=== PATIENT | female | born 1930 | race Caucasian/White ===

== ENCOUNTER → 2017-12-31 | Outpatient (CLI) | payer MEDICARE ==
[2017-03-26 13:57] VITALS: BMI 22.1
[~2017-12-31] MED LIST: AMLO-96 PO; AMLO-99 PO; AMOX-559 PO; ASP81 PO; ATEN-1 PO; CALC500T42 PO; CEFU250 PO; CHOL200074 PO; CYC10 PO; DILT-145 PO; FOLI-68 PO; GABA-547 PO; HYDR-2946 PO; HYDR-2963 PO; HYDR-2970 PO; HYDR10TA20 PO; HYDR12.556 PO; IRON18TA2 PO; LEV75 PO; LISI-374 PO; LISI2.5T60 PO; LOR5/325 PO; METF-410 PO; MULT-1097 PO; OMEP-137 PO; ONDA4TAB PO; ONDA4TAB97 PO; POTA10CA61 PO; PRAM0.2524 PO; PRE5 PO; ROSU5TAB8 PO; SIMV-42 PO; SIMV-44 PO; SOT80 PO; SPIR25TA78 PO; [UNRECOGNIZED DRUG - CODE] IH; [UNRECOGNIZED DRUG - CODE] PO
== END ==
LOC: LAB 10:15
PROVIDERS: ATTEND Nurse Practitioner Family
DX: N18.3 Chronic kidney disease, stage 3 (moderate) (principal); Z86.39 Personal history of other endocrine, nutritional and metabolic disease
CPT/HCPCS: 36415; 82040; 82247; 82310; 82374; 82435; 82565; 82947; 84075; 84132; 84155; 84295; 84443; 84450; 84460; 84520

== ENCOUNTER → 2018-01-09 | Outpatient (CLI) | payer MEDICARE ==
[2017-03-26 13:57] VITALS: BMI 22.1
== END ==
LOC: LAB 09:47
PROVIDERS: ATTEND Internal Medicine
DX: I10 Essential (primary) hypertension (principal)
CPT/HCPCS: 36415; 82310; 82374; 82435; 82565; 82947; 84132; 84295; 84520

== ENCOUNTER → 2018-01-09 | Outpatient (CLI) | payer MEDICARE ==
[2017-03-26 13:57] VITALS: BMI 22.1
--- NOTE | 2018-01-09 10:53 | RADIOLOGY IMAGING REPORT ---
FACILITY: [facility] - [place] PATIENT NAME: Melissa Villeda : 1930 MR: [id number] V: [id number] EXAM DATE: ORDERING PHYSICIAN: TOSHA AKBAR TECHNOLOGIST: Location: [facility] - [place] Patient: Melissa Villeda : 1930 Visit/Account:[id number] Date of Sevice: 01/09/2018 Technique: CHEST PA AND LAT HISTORY: Right, Comparison studies: Chest radiograph April 12, 2017, CT chest March 25, 2017 FINDINGS: Present is bibasilar scarring and/or atelectasis. No lobar airspace consolidation. Promin ent vascular superimposition or scarring when compared with CT is noted within the right lung base at the level of the mid right hemidiaphragm. The cardiomediastinal silhouette is unchanged. IMPRESSION: 1. No acute cardiopulmonary process. 2. Bibasilar scarring and/or atelectasis. Report Dictated By: Marvel Benitez DO at 01/09/2018 10:46 AM Report E-Signed By: Marvel Benitez DO at 01/09/2018 10:49 AM WSN:[id number]
== END ==
LOC: RAD 09:50
PROVIDERS: ATTEND Nurse Practitioner Family
DX: R91.8 Other nonspecific abnormal finding of lung field (principal)
CPT/HCPCS: 71046

== ENCOUNTER → 2018-02-17 | Outpatient (CLI) | payer MEDICARE ==
[2017-03-26 13:57] VITALS: BMI 22.1
[~2018-02-17] MED LIST changes: +CITA-139 PO; +DILT-106 PO; +LEVO50TA86 PO; +LOSA100T67 PO
== END ==
LOC: LAB 11:57
PROVIDERS: ATTEND Surgery
DX: L72.0 Epidermal cyst (principal)
CPT/HCPCS: 88305

== ENCOUNTER → 2018-03-21 | Outpatient (CLI) | payer MEDICARE ==
[2017-03-26 13:57] VITALS: BMI 22.1
== END ==
LOC: LAB 07:06
PROVIDERS: ATTEND Internal Medicine
DX: I65.23 Occlusion and stenosis of bilateral carotid arteries (principal); I10 Essential (primary) hypertension
CPT/HCPCS: 36415; 82310; 82374; 82435; 82565; 82947; 84132; 84295; 84520

== ENCOUNTER → 2018-03-31 | Outpatient (CLI) | payer MEDICARE ==
[2017-03-26 13:57] VITALS: BMI 22.1
== END ==
LOC: LAB 07:11
PROVIDERS: ATTEND Nurse Practitioner Family
DX: I12.9 Hypertensive chronic kidney disease with stage 1 through stage 4 chronic kidney disease, or unspecified chronic kidney disease (principal); N18.3 Chronic kidney disease, stage 3 (moderate); D53.9 Nutritional anemia, unspecified; E11.9 Type 2 diabetes mellitus without complications; Z86.39 Personal history of other endocrine, nutritional and metabolic disease; E83.52 Hypercalcemia; D50.8 Other iron deficiency anemias; R53.83 Other fatigue; E78.2 Mixed hyperlipidemia; M62.81 Muscle weakness (generalized); D51.0 Vitamin B12 deficiency anemia due to intrinsic factor deficiency; M05.59 Rheumatoid polyneuropathy with rheumatoid arthritis of multiple sites; E21.5 Disorder of parathyroid gland, unspecified; E55.9 Vitamin D deficiency, unspecified
CPT/HCPCS: 36415; 82040; 82247; 82306; 82310; 82374; 82435; 82465; 82565; 82607; 82947; 83718; 84075; 84132; 84155; 84295; 84443; 84450; 84460; 84478; 84520; 85027

== ENCOUNTER → 2018-06-09 | Outpatient (CLI) | payer MEDICARE ==
[2017-03-26 13:57] VITALS: BMI 22.1
[~2018-06-09] MED LIST changes: -CITA-139 PO; +CITA-145 PO; -METF-410 PO; +METF-411 PO
== END ==
LOC: LAB 12:57
PROVIDERS: ATTEND Nurse Practitioner Family
DX: N18.2 Chronic kidney disease, stage 2 (mild) (principal); D53.9 Nutritional anemia, unspecified; E11.9 Type 2 diabetes mellitus without complications; Z86.39 Personal history of other endocrine, nutritional and metabolic disease; E83.52 Hypercalcemia; M62.81 Muscle weakness (generalized)
CPT/HCPCS: 36415; 82040; 82247; 82310; 82374; 82435; 82465; 82550; 82565; 82947; 83718; 84075; 84132; 84155; 84295; 84443; 84450; 84460; 84478; 84520

== ENCOUNTER → 2018-06-18 | Outpatient (CLI) | payer MEDICARE ==
[2017-03-26 13:57] VITALS: BMI 22.1
[~2018-06-18] MED LIST changes: -SPIR25TA78 PO; +SPIR25TA80 PO
[2018-06-18 08:27] LABS: PLATELET COUNT, AUTOMATED 212 K/uL (150-450)
== END ==
LOC: LAB 07:30
PROVIDERS: ATTEND Nurse Practitioner Family
DX: E87.1 Hypo-osmolality and hyponatremia (principal); E06.3 Autoimmune thyroiditis; Z86.39 Personal history of other endocrine, nutritional and metabolic disease; R06.00 Dyspnea, unspecified; R05 Cough; I10 Essential (primary) hypertension
CPT/HCPCS: 36415; 82024; 82040; 82247; 82310; 82374; 82435; 82436; 82533; 82565; 82947; 83880; 83970; 84075; 84132; 84133; 84155; 84295; 84300; 84443; 84450; 84460; 84520; 85025

== ENCOUNTER → 2018-07-10 | Outpatient (CLI) | payer MEDICARE ==
[2017-03-26 13:57] VITALS: BMI 22.1
== END ==
LOC: LAB 07:25
PROVIDERS: ATTEND Nurse Practitioner Family
DX: E87.1 Hypo-osmolality and hyponatremia (principal); I50.9 Heart failure, unspecified
CPT/HCPCS: 36415; 82040; 82247; 82310; 82374; 82435; 82565; 82947; 83880; 84075; 84132; 84155; 84295; 84450; 84460; 84520

== ENCOUNTER 2018-07-24 10:46 | Emergency (ER) | payer MEDICARE ==
[2017-03-26 13:57] VITALS: Wt 68.0 kg
[2018-07-24] MEDS ORDERED: LEVO88TA43 PO (10:56)
[2018-07-24] MEDS ORDERED: PRED-1 PO (10:56)
--- NOTE | 2018-07-24 10:57 | ER Report ---
History and Physical Time Seen By MD: 10:56 HPI/ROS CHIEF COMPLAINT: Generalized weakness HISTORY OF PRESENT ILLNESS: Patient is an 88-year-old female who presents to the emergency department for generalized weakness. She was seen at her primary care provider office today and she relayed that she was feeling weak that both of her legs felt "shaky. For this reason the primary care provider thought she would best be served having an evaluation in the emergency department. Patient does report some dizziness without true vertigo. She denies headache or neck pain. She denies fevers or chills she does report some shortness of breath. She states that the symptoms started around 8 AM this morning. She denies having similar episodes in the past. Patient has a past medical history for hypo-nature anemia. She also has history of palpitations and is currently on diltiazem as well as sotalol but only on Wednesdays and Fridays. Patient states she did not take sotalol today. REVIEW OF SYSTEMS: Constitutional: No fever, no chills. Eyes: No discharge. ENT: No sore throat. Cardiovascular: No chest pain, no palpitations. Respiratory: Mild shortness of breath without cough Gastrointestinal: No abdominal pain, no vomiting. Genitourinary: No hematuria. Musculoskeletal: No back pain. Skin: No rashes. Neurological: No headache. Mild dizziness Allergies: Coded Allergies: sulfamethoxazole (Verified Allergy, Severe, UNKNOWN, 04/12/17) Nurse at rehab center took pt's vital signs and told the pt that she didn't like what she saw and took pt to the hospital. trimethoprim (Verified Allergy, Severe, UNKNOWN, 04/12/17) Nurse at rehab center took pt's vital signs and told the pt that she didn't like what she saw and took pt to the hospital. codeine (Verified Adverse Reaction, Mild, NAUSEA/VOMITING, 04/12/17) Home Meds Reported Medications Levothyroxine Sodium (SYNTHROID) 88 Mcg Tablet, 88 MCG PO QM,T,W,TH,F 07/24/18 Prednisone 10 Mg Tab (PREDNISONE 10 MG TAB) 10 Mg Tablet, 5 MG PO QDAY, TAB 07/24/18 Citalopram Hydrobromide (CITALOPRAM HBR) 20 Mg Tablet, 10 MG PO QDAY, #5 TAB 02/10/18 Sotalol Hcl (SOTALOL) 80 Mg Tab, 40 MG PO QODAY, TAB Take 02/10/18 Diltiazem Hcl (CARTIA XT) 240 Mg Cap.er.24h, 240 MG PO BID 02/10/18 Pramipexole Di-Hcl (MIRAPEX) 0.25 Mg Tablet, 0.25 MG PO QHS 03/25/17 Folic Acid (FOLIC ACID) 1 Mg Tablet, 1 MG PO QPM, TAB 03/25/17 Rosuvastatin Calcium (CRESTOR) 5 Mg Tablet, 5 MG PO QPM 03/25/17 Cholecalciferol (Vitamin D3) (VITAMIN D-3) 2,000 Unit Capsule, 2000 UNIT PO DAILY, CAPSULE 10/14/15 Multivitamin (ONE DAILY) 1 Each Tablet, 1 EACH PO DAILY 04/20/15 Aspirin (Childrens Chewable Aspirin) 81 Mg Chew, 81 MG PO QDAY, 0 Refills 05/24/11 Discontinued Reported Medications Losartan Potassium (LOSARTAN POTASSIUM) 100 Mg Tablet, 100 MG PO QDAY 02/10/18 Levothyroxine Sodium (LEVOTHYROXINE SODIUM) 50 Mcg Tablet, 50 MCG PO QDAY, TAB Take -Sa-Peraza 02/10/18 Omeprazole (OMEPRAZOLE) 20 Mg Tablet.dr, 20 MG PO QDAY, TAB 03/25/17 Levothyroxine Sodium (Synthroid/Levothroid) 0.075 Mg Tab, 1 TAB PO QDAY, 0 Refills Take 05/24/11 Discontinued Scripts Prednisone 5 Mg Tab (PREDNISONE 5 MG TAB) 5 Mg Tablet, 5 MG PO QPM, #30 TAB 1 Refill Take two tablets a day for 3 days then resume one tablet daily after that. Prov:RADHA MENSAH MD 03/27/17 Past Medical/Surgical History Past medical history for hypertriglyceridemia. History of sinusitis, hyponatremia, chronic kidney disease stage IV last creatinine on 07/10/2018 was 1.00 with a GFR of 52., type II diabetes, hypothyroidism, supraventricular tachycardia,, hypertension. Past surgical history for cholecystectomy, hysterect jaleel Hx Smoking: Yes Smoking Status: Former Smoker Hx Substance Use Disorder: No Hx Alcohol Use: No (former) Constitutional Vital Sign - Last 24 Hours 07/24/18 07/24/18 10:50 15:34 Temp 98.4 Pulse 44 68 Resp 18 B/P (MAP) 131/78 144/71 (95) Pulse Ox 90 92 O2 Delivery Room Air Room Air Intake and Output 07/24/18 07/24/18 07/25/18 15:00 23:00 07:00 Intake Total 500 ml Balance 500 ml Physical Exam General/Constitutional: Patient is awake, alert, nontoxic and in no acute respiratory distress. Head: Normocephalic and atraumatic. Eyes: Conjunctival clear, Pupils are equal and reactive to light. Extraocular muscles are intact and symmetrical. Sclera are clear and anicteric. Ears:External canals are clear. Tympanic membranes are clear with normal landmarks and light reflex. Nares: No rhinorrhea or bleeding. Turbinates are pink and moist. Oropharyngeal: Mucous membranes are moist. There is no pharyngeal erythema or exudate. There are no palatal petechiae. Uvula is midline and symmetrical. Neck: Supple, no adenopathy. Cardiovascular: Heart is regular but with a bradycardic rate. Pulmonary: Lungs are clear to auscultation bilaterally. There are no wheezes, rales, or rhonchi. Chest rise is symmetrical Abdomen: Soft, nontender, no guarding or peritoneal signs. Extremities: No gross deformities, No peripheral cyanosis. Able to move all 4 extremities. Neuro: Alert and oriented X3, Cranial nerves 2 thru 12 are intact and symmetrical. Skin: No rashes, skin is warm dry and well perfused. Medical Decision Making Data Points Result Diagram: 07/24/18 1057 07/24/18 1057 Laboratory Hematology Test 07/24/18 10:57 07/24/18 12:14 07/24/18 14:57 Red Blood Count 4.56 M/uL (4.17-5.56) Mean Corpuscular Volume 91.1 fL (80.0-96.0) Mean Corpuscular Hemoglobin 31.7 pg (26.0-33.0) Mean Corpuscular Hemoglobin Concent 34.8 g/dL (32.0-36.0) Red Cell Distribution Width 13.3 % (11.5-14.5) Mean Platelet Volume 8.3 fL (7.2-11.1) Neutrophils (%) (Auto) 61.8 % (39.4-72.5) Lymphocytes (%) (Auto) 24.6 % (17.6-49.6) Monocytes (%) (Auto) 10.8 % (4.1-12.4) Eosinophils (%) (Auto) 2.1 % (0.4-6.7) Basophils (%) (Auto) 0.7 % (0.3-1.4) Nucleated RBC Relative Count (auto) 0.1 /100WBC Neutrophils # (Auto) 6.6 K/uL (2.0-7.4) Lymphocytes # (Auto) 2.6 K/uL (1.3-3.6) Monocytes # (Auto) 1.2 K/uL (0.3-1.0) Eosinophils # (Auto) 0.2 K/uL (0.0-0.5) Basophils # (Auto) 0.1 K/uL (0.0-0.1) Nucleated RBC Absolute Count (auto) 0.01 K/uL Sodium Level 134 mmol/L (137-145) Potassium Level 3.7 mmol/L (3.5-5.0) Chloride Level 100 mmol/L (98-107) Carbon Dioxide Level 23 mmol/L (22-31) Blood Urea Nitrogen 18 mg/dl (7-18) Creatinine 1.30 mg/dl (0.52-1.04) Glomerular Filtration Rate Calc 38.7 Random Glucose 90 mg/dl (75-110) Calcium Level 10.2 mg/dl (8.4-10.2) Total Bilirubin 0.7 mg/dl (0.2-1.3) Aspartate Amino Transf (AST/SGOT) 22 U/L (0-35) Alanine Aminotransferase (ALT/SGPT) 23 U/L (0-56) Alkaline Phosphatase 73 U/L (0-126) Total Protein 6.9 g/dl (6.3-8.2) Albumin 4.0 g/dl (3.5-5.0) Thyroid Stimulating Hormone (TSH) 3.96 uIU/ml (0.46-4.68) Urine Color Yellow Urine Clarity Clear Urine pH 6.0 pH (4.8-9.5) Urine Specific [place] 1.011 Urine Protein Negative mg/dL (NEGATIVE) Urine Glucose (UA) Negative mg/dL (NEGATIVE) Urine Ketones Negative mg/dL (NEGATIVE) Urine Blood Negative (NEGATIVE) Urine Nitrite Negative (NEGATIVE) Urine Bilirubin Negative (NEGATIVE) Urine Urobilinogen Negative mg/dL (0.2-1.9) Urine Leukocyte Esterase Negative (NEGATIVE) Urine RBC None /HPF (0-2/HPF) Urine WBC <1 /HPF (0-5/HPF) Urine Squamous Epithelial Cells None /LPF (NONE-FEW) Urine Bacteria Negative /HPF (NONE-FEW) Urine Hyaline Casts Few /LPF (NONE-FEW) Urine Mucus None /HPF (NONE-FEW) Troponin I < 0.012 ng/ml Chemistry Test 07/24/18 10:57 07/24/18 12:14 07/24/18 14:57 White Blood Count 10.7 k/uL (4.5-11.0) Red Blood Count 4.56 M/uL (4.17-5.56) Hemoglobin 14.5 g/dL (12.0-16.0) Hematocrit 41.6 % (34.0-47.0) Mean Corpuscular Volume 91.1 fL (80.0-96.0) Mean Corpuscular Hemoglobin 31.7 pg (26.0-33.0) Mean Corpuscular Hemoglobin Concent 34.8 g/dL (32.0-36.0) Red Cell Distribution Width 13.3 % (11.5-14.5) Platelet Count 227 K/uL (150-450) Mean Platelet Volume 8.3 fL (7.2-11.1) Neutrophils (%) (Auto) 61.8 % (39.4-72.5) Lymphocytes (%) (Auto) 24.6 % (17.6-49.6) Monocytes (%) (Auto) 10.8 % (4.1-12.4) Eosinophils (%) (Auto) 2.1 % (0.4-6.7) Basophils (%) (Auto) 0.7 % (0.3-1.4) Nucleated RBC Relative Count (auto) 0.1 /100WBC Neutrophils # (Auto) 6.6 K/uL (2.0-7.4) Lymphocytes # (Auto) 2.6 K/uL (1.3-3.6) Monocytes # (Auto) 1.2 K/uL (0.3-1.0) Eosinophils # (Auto) 0.2 K/uL (0.0-0.5) Basophils # (Auto) 0.1 K/uL (0.0-0.1) Nucleated RBC Absolute Count (auto) 0.01 K/uL Glomerular Filtration Rate Calc 38.7 Calcium Level 10.2 mg/dl (8.4-10.2) Total Bilirubin 0.7 mg/dl (0.2-1.3) Aspartate Amino Transf (AST/SGOT) 22 U/L (0-35) Alanine Aminotransferase (ALT/SGPT) 23 U/L (0-56) Alkaline Phosphatase 73 U/L (0-126) Total Protein 6.9 g/dl (6.3-8.2) Albumin 4.0 g/dl (3.5-5.0) Thyroid Stimulating Hormone (TSH) 3.96 uIU/ml (0.46-4.68) Urine Color Yellow Urine Clarity Clear Urine pH 6.0 pH (4.8-9.5) Urine Specific [place] 1.011 Urine Protein Negative mg/dL (NEGATIVE) Urine Glucose (UA) Negative mg/dL (NEGATIVE) Urine Ketones Negative mg/dL (NEGATIVE) Urine Blood Negative (NEGATIVE) Urine Nitrite Negative (NEGATIVE) Urine Bilirubin Negative (NEGATIVE) Urine Urobilinogen Negative mg/dL (0.2-1.9) Urine Leukocyte Esterase Negative (NEGATIVE) Urine RBC None /HPF (0-2/HPF) Urine WBC <1 /HPF (0-5/HPF) Urine Squamous Epithelial Cells None /LPF (NONE-FEW) Urine Bacteria Negative /HPF (NONE-FEW) Urine Hyaline Casts Few /LPF (NONE-FEW) Urine Mucus None /HPF (NONE-FEW) Troponin I < 0.012 ng/ml Urinalysis Test 07/24/18 12:14 Urine Color Yellow Urine Clarity Clear Urine pH 6.0 pH (4.8-9.5) Urine Specific [place] 1.011 Urine Protein Negative mg/dL (NEGATIVE) Urine Glucose (UA) Negative mg/dL (NEGATIVE) Urine Ketones Negative mg/dL (NEGATIVE) Urine Blood Negative (NEGATIVE) Urine Nitrite Negative (NEGATIVE) Urine Bilirubin Negative (NEGATIVE) Urine Urobilinogen Negative mg/dL (0.2-1.9) Urine Leukocyte Esterase Negative (NEGATIVE) Urine RBC None /HPF (0-2/HPF) Urine WBC <1 /HPF (0-5/HPF) Urine Squamous Epithelial Cells None /LPF (NONE-FEW) Urine Bacteria Negative /HPF (NONE-FEW) Urine Hyaline Casts Few /LPF (NONE-FEW) Urine Mucus None /HPF (NONE-FEW) EKG/Imaging EKG Interpretation EKG shows actual bradycardia with rate of 47 bpm. This was compared to an EKG in April 2017 which showed sinus rhythm with first-degree AV block. Monitor Interpretation: Other (junctional bradycardia) Imaging FACILITY: [facility] PATIENT NAME: Melissa Villeda : 1930 MR: [id number] V: [id number] EXAM DATE: ORDERING PHYSICIAN: MIKA RODRIGUEZ TECHNOLOGIST: Location: [facility] [place] Patient: Melissa Villeda : 1930 Visit/Account:[id number] Date of Sevice: 07/24/[address] scan without contrast HISTORY: Weakness COMPARISONS: March 19, 2017 TECHNIQUE: Non-contrast head CT was performed with sagittal and coronal reformations. One of the following dose optimization techniques was utilized in the performance of this exam: automated exposure control; adjustment of the mA a nd/or kV according to patient size; or use of iterative reconstruction technique. Specific details can be referenced in the facility's radiology CT exam operational policy. FINDINGS: There is no intracranial hemorrhage, hydrocephalus or midline shift. The basal cisterns, monge-white differentiation, and convexity sulci are maintained. Normal orbital soft tissues. Unchanged patchy white matter hypoattenuation. The mastoid air cells are clear. The paranasal sinuses are clear. The osseous structures are normal. IMPRESSION: No acute intracranial abnormality. Mild to moderate unchanged chronic small vessel ischemic change. Report Dictated By: Puma Correa MD at 07/24/2018 11:59 AM Report E-Signed By: Puma Correa MD at 07/24/2018 12:01 PM WSN:[id number] FACILITY: [facility] PATIENT NAME: Melissa Villeda : 1930 MR: [id number] V: [id number] EXAM DATE: ORDERING PHYSICIAN: MIKA RODRIGUEZ TECHNOLOGIST: Location: [facility] [place] Patient: Melissa Villeda : 1930 Visit/Account:[id number] Date of Sevice: 07/24/2018 Single view of the chest Indication: Weakness and cough. Comparison: X-ray examination January 2018 Findings: Heart size within normal limits. Mild linear prominence of the interstitium, an unchanged finding. There is no new infiltrate, consolidation, effusion or pneumothorax. No failure. Heart is at the upper limits of normal, stable as compared to prior exam. Minimal scarring left base IMPRESSION: 1. Stable chronic parenchymal changes. No acute finding Report Dictated By: Wu Pereyra MD at 07/24/2018 11:20 AM Report E-Signed By: Wu Pereyra MD at 07/24/2018 11:21 AM WSN:[id number] ED Course/Re-evaluation Clinical Indication for ER IV: IV Access ED Course 07/24/2018 1:54:08 pm I spoke with the triage nurse from the [facility]. She spoke with the on-call physician who states that we should have the patient discontinue her diltiazem. We will have her continue her sotalol as prescribed. She will also have a follow-up appointment tomorrow with Dr. Rod at 2:30 PM in the outpatient center here at [facility]. Decision to Disposition Date: Jul 24, 2018 Decision to Disposition Time: 16:00 Depart Departure Latest Vital Signs Vital Signs Date Time Temp Pulse Resp B/P (MAP) Pulse Ox O2 Delivery O2 Flow Rate FiO2 07/24/18 15:34 68 144/71 (95) 92 Room Air 07/24/18 10:50 98.4 18 Impression: Primary Impression: Dizziness Condition: Improved Disposition: HOME OR SELF-CARE Referrals: TOSHA AKBAR (PCP) SHI ROD MD Follow-up at 2:30 PM tomorrow July 25 in patient clinic. Additional Instructions: Discontinue your diltiazem medication Continue to take the sotalol as prescribed You have a follow-up appointment with Dr. Rod tomorrow July 25 at 2:30 PM here at [facility] in the outpatient clinic. MIKA RODRIGUEZ MD Jul 24, 2018 10:57
[2018-07-24] MEDS ORDERED: NS(*) 0.9% 500 ML BAG 500 ML IV ONE (11:01)
[2018-07-24 11:13] LABS: PLATELET COUNT, AUTOMATED 227 K/uL (150-450)
--- NOTE | 2018-07-24 11:25 | RADIOLOGY IMAGING REPORT ---
FACILITY: [facility] - [place] PATIENT NAME: Melissa Villeda : 1930 MR: [id number] V: [id number] EXAM DATE: ORDERING PHYSICIAN: MIKA RODRIGUEZ TECHNOLOGIST: Location: [facility] - [place] Patient: Melissa Villeda : 1930 Visit/Account:[id number] Date of Sevice: 07/24/2018 Single view of the chest Indication: Weakness and cough. Comparison: X-ray examination January 2018 Findings: Heart size within normal limits. Mild linear prominence of the interstitium, an unchanged finding. There is no new infiltrate, consoli dation, effusion or pneumothorax. No failure. Heart is at the upper limits of normal, stable as ousmane red to prior exam. Minimal scarring left base IMPRESSION: 1. Stable chronic parenchymal changes. No acute finding Report Dictated By: Wu Pereyra MD at 07/24/2018 11:20 AM Report E-Signed By: Wu Pereyra MD at 07/24/2018 11:21 AM WSN:[id number]
--- NOTE | 2018-07-24 12:05 | RADIOLOGY IMAGING REPORT ---
FACILITY: [facility] - [place] PATIENT NAME: Melissa Villeda : 1930 MR: [id number] V: [id number] EXAM DATE: ORDERING PHYSICIAN: MIKA RODRIGUEZ TECHNOLOGIST: Location: [facility] - [place] Patient: Melissa Villeda : 1930 Visit/Account:[id number] Date of Sevice: 07/24/[address] scan without contrast HISTORY: Weakness COMPARISONS: March 19, 2017 TECHNIQUE: Non-contrast head CT was performed with sagittal and coronal reformations. One of the following dose optimization techniques was utilized in the performance of this exam: autom ated exposure control; adjustment of the mA and/or kV according to patient size; or use of iterative reconstruction technique. Specific details can be referenced in the facility's radiology CT exam ope rational policy. FINDINGS: There is no intracranial hemorrhage, hydrocephalus or midline shift. The basal cisterns, monge-white differentiation, and convexity sulci are maintained. Normal orbital soft tissues. Unchanged patchy wh ite matter hypoattenuation. The mastoid air cells are clear. The paranasal sinuses are clear. The osseous structures are normal . IMPRESSION: No acute intracranial abnormality. Mild to moderate unchanged chronic small vessel ischemic change. Report Dictated By: Puma Correa MD at 07/24/2018 11:59 AM Report E-Signed By: Puma Correa MD at 07/24/2018 12:01 PM WSN:[id number]
--- NOTE | 2018-07-24 12:23 | EKG ---
FACILITY: [facility] - [place] PATIENT NAME: DIETER NI : [id number] MR: [id number] V: [id number] EXAM DATE: ORDERING PHYSICIAN: MIKA RODRIGUEZ TECHNOLOGIST: NIKI Test Reason : WEAKNESS Blood Pressure : / mmHG Vent. Rate : 047 BPM Atrial Rate : 044 BPM P-R Int : 000 ms QRS Dur : 072 ms QT Int : 474 ms P-R-T Axes : 000 -19 088 degrees QTc Int : 419 ms Junctional rhythm with occasional premature ventricular complexes Septal infarct , age undetermined Abnormal ECG When compared with ECG of 12-APR-2017 02:42, Junctional rhythm has replaced Sinus rhythm Vent. rate has decreased BY 38 BPM Septal infarct is now present Referred By: LAYTON Confirmed By:. READING PANEL
[2018-07-24 15:34] VITALS: BP 144/71
== END 2018-07-24 15:42 | disposition home or self-care (01) ==
LOC: ER 10:50
DX: R42 Dizziness and giddiness (principal)
CPT/HCPCS: 36415; 70450; 71045; 81001; 84443; 84484; 85025; 87088; 93005; 96360; 99284; J7040; 82040; 82247; 82310; 82374; 82435; 82565; 82947; 84075; 84132; 84155; 84295; 84450; 84460; 84520; A4353

== ENCOUNTER → 2018-08-06 | Outpatient (CLI) | payer MEDICARE ==
[2017-03-26 13:57] VITALS: BMI 22.1
[~2018-08-06] MED LIST changes: +LEVO88TA43 PO; +PRED-1 PO
== END ==
LOC: LAB 07:09
PROVIDERS: ATTEND Nurse Practitioner Family
DX: E87.1 Hypo-osmolality and hyponatremia (principal); I10 Essential (primary) hypertension; E61.2 Magnesium deficiency
CPT/HCPCS: 36415; 82040; 82247; 82310; 82374; 82435; 82565; 82947; 83735; 84075; 84132; 84155; 84295; 84450; 84460; 84520

== ENCOUNTER → 2018-10-14 | Outpatient (CLI) | payer MEDICARE ==
[2017-03-26 13:57] VITALS: BMI 22.1
[~2018-10-14] MED LIST changes: +AMLO-111 PO; +AMLO-113 PO; -AMLO-96 PO; -AMLO-99 PO; -LOSA100T67 PO; +LOSA100T69 PO; -METF-411 PO; +METF-450 PO
== END ==
LOC: LAB 11:19
PROVIDERS: ATTEND Nurse Practitioner Family
DX: I10 Essential (primary) hypertension (principal); E87.1 Hypo-osmolality and hyponatremia; E61.2 Magnesium deficiency
CPT/HCPCS: 36415; 82040; 82247; 82310; 82374; 82435; 82565; 82947; 83735; 84075; 84132; 84155; 84295; 84450; 84460; 84520

== ENCOUNTER → 2018-12-16 | Outpatient (CLI) | payer MEDICARE ==
[2017-03-26 13:57] VITALS: BMI 22.1
[~2018-12-16] MED LIST changes: -AMLO-111 PO; -AMLO-113 PO; +AMLO-125 PO; +AMLO-127 PO; -LOSA100T69 PO; +LOSA100T75 PO; -MULT-1097 PO; +MULT-1540 PO
--- NOTE | 2018-12-16 14:16 | RADIOLOGY IMAGING REPORT ---
FACILITY: [facility] [place] PATIENT NAME: Melissa Villeda : 1930 MR: [id number] V: [id number] EXAM DATE: ORDERING PHYSICIAN: SOURAV FORREST TECHNOLOGIST: Location: [facility] - [place] Patient: Melissa Villeda : 1930 Visit/Account:[id number] Date of Sevice: 12/16/[address] scan without contrast COMPARISONS: Head CT scan dated July 24, 2018 ADDITIONAL PERTINENT HISTORY: Fall with swelling and bruising about both orbits. TECHNIQUE: Multiple axial images were obtained from the skull base to the vertex without IV contrast . One of the following dose optimization techniques was utilized in the performance of this exam: Aut omated exposure control; adjustment of the mA and/or kV according to the patient's size; or use of an iterative reconstruction technique. Specific details can be referenced in the facility's radiology CT exam operational policy. FINDINGS: Midline shift: Negative Ventricles: Mild enlargement of the lateral and third ventricles. Brain parenchyma: Patchy hypoattenuation within the periventricular and subcortical white matter, no nspecific but likely representing small vessel ischemic change on a chronic basis. No intraparenchym al hemorrhage. Extra-axial spaces: Mild cerebral atrophy. Intracranial vasculature: Cavernous internal carotid and distal vertebral artery calcifications. Ot herwise negative Osseous structures: Negative Paranasal sinuses and mastoid air cells: Negative Surrounding soft tissues and orbits: Right frontal scalp soft tissue hematoma and right periorbital soft tissue swelling. IMPRESSION: 1. Age related changes as described above. 2. Right frontal scalp and right periorbital soft tissue hematoma. 3. No evidence of acute intracranial pathology. Report Dictated By: Kenrick Sanches MD at 12/16/2018 2:07 PM Report E-Signed By: Kenrick Sanches MD at 12/16/2018 2:12 PM WSN:[id number]
--- NOTE | 2018-12-16 14:49 | RADIOLOGY IMAGING REPORT ---
FACILITY: [facility] - [place] PATIENT NAME: Melissa Villeda : 1930 MR: [id number] V: [id number] EXAM DATE: ORDERING PHYSICIAN: SOURAV FORREST TECHNOLOGIST: Location: [facility] [place] Patient: Melissa Villeda : 1930 Visit/Account:[id number] Date of Sevice: 12/16/2018 CT ORBITS W/O CONTRAST Comparisons: None. Additional pertinent history: Fall with swelling and bruising about both orbits. TECHNIQUE: Multiple axial images were obtained through the orbits without contrast. Coronal and sag ittal reformatted images were obtained off the axial source data. One of the following dose optimiza tion techniques was utilized in the performance of this exam: Automated exposure control; adjustment of the mA and/or kV according to the patient's size; or use of an iterative reconstruction technique . Specific details can be referenced in the facility's radiology CT exam operational policy. FINDINGS: Visualized brain parenchyma: Cavernous internal carotid artery calcifications. Otherwise negative Globes: Negative. Extraocular muscles: Negative. Retrobulbar structures: Negative. Lacrimal glands: Negative. Optic nerves:Negative. Visualized portions of the paranasal sinuses: Negative Surrounding soft tissues: Bilateral periorbital soft tissue hematomas with a small right frontal sca lp soft tissue hematoma. IMPRESSION: 1. Bilateral periorbital soft tissue hematoma is as well as a right frontal scalp soft tissue hemato ma. 2. No bony traumatic injury involving either orbit Report Dictated By: Kenrick Sanches MD at 12/16/2018 2:42 PM Report E-Signed By: Kenrick Sanches MD at 12/16/2018 2:45 PM WSN:[id number]
== END ==
LOC: CT 11:18
PROVIDERS: ATTEND Nurse Practitioner Family
DX: S00.03XA Contusion of scalp, initial encounter (principal)
CPT/HCPCS: 70450; 70480

== ENCOUNTER 2019-01-05 06:48 | Emergency (ER) | payer MEDICARE ==
[2017-03-26 13:57] VITALS: Wt 63.5 kg
--- NOTE | 2019-01-05 06:58 | ER Report ---
History and Physical Time Seen By MD: 06:58 HPI/ROS CHIEF COMPLAINT: cough, runny nose, weakness HISTORY OF PRESENT ILLNESS: This is an 88 year old female. She is having cough and runny nose for 3 days. Nasal congestion. Denies sore throat. Cough, mostly nonproductive. Has occasional clear production. No known fevers. Using Tylenol off and on as needed. Denies nausea or vomiting. Eating and drinking okay. Has no bowel changes, had a small episode of loose stool a few days ago. Feels very weak. Denies dizziness and is getting around okay. Denies chest pain. Always with mild swelling/edema in legs, unchanged. Allergies: Coded Allergies: sulfamethoxazole (Verified Allergy, Severe, UNKNOWN, 01/05/19) Nurse at rehab center took pt's vital signs and told the pt that she didn't like what she saw and took pt to the hospital. trimethoprim (Verified Allergy, Severe, UNKNOWN, 01/05/19) Nurse at rehab center took pt's vital signs and told the pt that she didn't like what she saw and took pt to the hospital. codeine (Verified Adverse Reaction, Mild, NAUSEA/VOMITING, 01/05/19) Home Meds Active Scripts Benzonatate 100 Mg Cap (TESSALON PERLE 100 MG CAP) 100 Mg Capsule, 100 MG PO TID PRN for COUGH, #15 CAP 0 Refills Prov:JACKIE CLARK MD 01/05/19 Oseltamivir Phosphate (TAMIFLU) 75 Mg Cap, 75 MG PO BID, #10 CAP 0 Refills Prov:JACKIE CLARK MD 01/05/19 Reported Medications Acetaminophen (TYLENOL EXTRA STRENGTH) 500 Mg Tablet, 1000 MG PO HS, TAB 01/05/19 Ranitidine Hcl (RANITIDINE HCL) 75 Mg Tablet, 75 MG PO BID 01/05/19 Sodium Chloride (SODIUM CHLORIDE) 1,000 Mg Tablet.marysol, 1000 MG PO TID 01/05/19 Metoprolol Tartrate (METOPROLOL TARTRATE) 25 Mg Tablet, 1 TAB PO BID, TAB 01/05/19 Minoxidil (MINOXIDIL) 2.5 Mg Tab, 2.5 MG PO DAILY, TAB 01/05/19 Hydralazine Hcl (HYDRALAZINE HCL) 10 Mg Tablet, 10 MG PO BID, TAB 01/05/19 Hydrochlorothiazide (HYDROCHLOROTHIAZIDE) 25 Mg Tablet, 1 TAB PO QDAY, TAB 01/05/19 Lisinopril (LISINOPRIL) 40 Mg Tablet, 40 MG PO QDAY, TAB 01/05/19 Levothyroxine Sodium (SYNTHROID) 88 Mcg Tablet, 88 MCG PO QM,T,W,TH,F 07/24/18 Prednisone 10 Mg Tab (PREDNISONE 10 MG TAB) 10 Mg Tablet, 5 MG PO QDAY, TAB 07/24/18 Citalopram Hydrobromide (CITALOPRAM HBR) 20 Mg Tablet, 10 MG PO QDAY, #5 TAB 02/10/18 Pramipexole Di-Hcl (MIRAPEX) 0.25 Mg Tablet, 0.25 MG PO QHS 03/25/17 Folic Acid (FOLIC ACID) 1 Mg Tablet, 1 MG PO QPM, TAB 03/25/17 Rosuvastatin Calcium (CRESTOR) 5 Mg Tablet, 5 MG PO QPM 03/25/17 Cholecalciferol (Vitamin D3) (VITAMIN D-3) 2,000 Unit Capsule, 2000 UNIT PO DAILY, CAPSULE 10/14/15 Multivitamin (ONE DAILY) 1 Each Tablet, 1 EACH PO DAILY 04/20/15 Aspirin (Childrens Chewable Aspirin) 81 Mg Chew, 81 MG PO QDAY, 0 Refills 05/24/11 Discontinued Reported Medications Sotalol Hcl (SOTALOL) 80 Mg Tab, 40 MG PO QODAY, TAB Take M-W-02/10/18 Diltiazem Hcl (CARTIA XT) 240 Mg Cap.er.24h, 240 MG PO BID 02/10/18 Past Medical/Surgical History Hypertension, hyperlipidemia, osteoporosis and arthritis, hypothyroidism, prediabetes. Cholelithiasis with cholecystectomy, hysterectomy, cataract surgery Reviewed Nurses Notes: Yes Hx Smoking: Yes Smoking Status: Former Smoker Hx Substance Use Disorder: No Hx Alcohol Use: No (former) Constitutional Vital Sign - Last 24 Hours 01/05/19 01/05/19 01/05/19 01/05/19 06:53 07:00 07:15 07:45 Temp 99.4 Pulse 92 83 82 Resp 16 B/P (MAP) 138/75 131/65 (87) Pulse Ox 90 89 92 92 O2 Delivery Room Air 01/05/19 01/05/19 01/05/19 08:00 08:15 08:30 Pulse 79 85 B/P (MAP) 129/61 (83) 146/74 (98) Pulse Ox 90 94 Physical Exam General Appearance: The patient is alert. No acute distress. Eyes: Pupils are equal, round. No pallor, injection or icterus. ENT: Mucous membranes are moist. Normal oral mucosa. Posterior oropharynx with erythema and mild clear drainage. Nasal mucosa red and mucous. Normal tympanic membranes and canals. Neck: Supple and non tender. No lymphadenopathy. Respiratory: Lungs with rhonchi, no rales or wheezing. Breathing easily. Sats 93% on room air. Cardiovascular: Regular rate and rhythm. No murmurs, gallops or rubs. Normal capillary refill. Gastrointestinal: Abdomen is soft, nontender. Nondistended. Normal active bowel sounds. No costovertebral angle tenderness with percussion. Neurological: Alert and oriented x3. No focal neurologic deficits Skin: Warm and dry. Musculoskeletal: Extremities are nontender. DIFFERENTIAL DIAGNOSIS: After history and physical exam, differential diagnosis was considered for cough and congestion, likely viral syndrome but will look at other pulmonary infectious process. Medical Decision Making Data Points Result Diagram: 01/05/19 0719 01/05/19 0719 Laboratory Hematology Test 01/05/19 07:16 01/05/19 07:19 Influenza Virus Type A (PCR) Positive (NEGATIVE) Influenza Virus Type B (PCR) Negative (NEGATIVE) Red Blood Count 3.61 M/uL (4.17-5.56) Mean Corpuscular Volume 92.9 fL (80.0-96.0) Mean Corpuscular Hemoglobin 31.8 pg (26.0-33.0) Mean Corpuscular Hemoglobin Concent 34.2 g/dL (32.0-36.0) Red Cell Distribution Width 13.7 % (11.5-14.5) Mean Platelet Volume 7.7 fL (7.2-11.1) Neutrophils (%) (Auto) 69.9 % (39.4-72.5) Lymphocytes (%) (Auto) 14.9 % (17.6-49.6) Monocytes (%) (Auto) 12.7 % (4.1-12.4) Eosinophils (%) (Auto) 1.6 % (0.4-6.7) Basophils (%) (Auto) 0.9 % (0.3-1.4) Nucleated RBC Relative Count (auto) 0.0 /100WBC Neutrophils # (Auto) 3.5 K/uL (2.0-7.4) Lymphocytes # (Auto) 0.7 K/uL (1.3-3.6) Monocytes # (Auto) 0.6 K/uL (0.3-1.0) Eosinophils # (Auto) 0.1 K/uL (0.0-0.5) Basophils # (Auto) 0.0 K/uL (0.0-0.1) Nucleated RBC Absolute Count (auto) 0.00 K/uL Sodium Level 133 mmol/L (137-145) Potassium Level 4.2 mmol/L (3.5-5.0) Chloride Level 107 mmol/L (98-107) Carbon Dioxide Level 22 mmol/L (22-31) Blood Urea Nitrogen 23 mg/dl (7-18) Creatinine 1.90 mg/dl (0.52-1.04) Glomerular Filtration Rate Calc 24.9 Random Glucose 81 mg/dl (75-110) Calcium Level 9.7 mg/dl (8.4-10.2) Total Bilirubin 0.6 mg/dl (0.2-1.3) Aspartate Amino Transf (AST/SGOT) 20 U/L (0-35) Alanine Aminotransferase (ALT/SGPT) 27 U/L (0-56) Alkaline Phosphatase 56 U/L (0-126) Total Protein 6.5 g/dl (6.3-8.2) Albumin 3.8 g/dl (3.5-5.0) Chemistry Test 01/05/19 07:16 01/05/19 07:19 Influenza Virus Type A (PCR) Positive (NEGATIVE) Influenza Virus Type B (PCR) Negative (NEGATIVE) White Blood Count 5.0 k/uL (4.5-11.0) Red Blood Count 3.61 M/uL (4.17-5.56) Hemoglobin 11.5 g/dL (12.0-16.0) Hematocrit 33.5 % (34.0-47.0) Mean Corpuscular Volume 92.9 fL (80.0-96.0) Mean Corpuscular Hemoglobin 31.8 pg (26.0-33.0) Mean Corpuscular Hemoglobin Concent 34.2 g/dL (32.0-36.0) Red Cell Distribution Width 13.7 % (11.5-14.5) Platelet Count 150 K/uL (150-450) Mean Platelet Volume 7.7 fL (7.2-11.1) Neutrophils (%) (Auto) 69.9 % (39.4-72.5) Lymphocytes (%) (Auto) 14.9 % (17.6-49.6) Monocytes (%) (Auto) 12.7 % (4.1-12.4) Eosinophils (%) (Auto) 1.6 % (0.4-6.7) Basophils (%) (Auto) 0.9 % (0.3-1.4) Nucleated RBC Relative Count (auto) 0.0 /100WBC Neutrophils # (Auto) 3.5 K/uL (2.0-7.4) Lymphocytes # (Auto) 0.7 K/uL (1.3-3.6) Monocytes # (Auto) 0.6 K/uL (0.3-1.0) Eosinophils # (Auto) 0.1 K/uL (0.0-0.5) Basophils # (Auto) 0.0 K/uL (0.0-0.1) Nucleated RBC Absolute Count (auto) 0.00 K/uL Glomerular Filtration Rate Calc 24.9 Calcium Level 9.7 mg/dl (8.4-10.2) Total Bilirubin 0.6 mg/dl (0.2-1.3) Aspartate Amino Transf (AST/SGOT) 20 U/L (0-35) Alanine Aminotransferase (ALT/SGPT) 27 U/L (0-56) Alkaline Phosphatase 56 U/L (0-126) Total Protein 6.5 g/dl (6.3-8.2) Albumin 3.8 g/dl (3.5-5.0) EKG/Imaging Imaging CHEST: Indication: Persistent cough. Technique: Frontal and lateral views were obtained. Comparison: 01/09/2018 Skeletal and soft tissue structures: There are chronic mild degenerative changes in the spine. No acute skeletal deformity is identified. Heart and mediastinum: Within normal limits. Lung gordon: Well-expanded. There are chronic linear opacities at both bases, consistent with scarring. No acute consolidation or volume loss is identified. Pleural spaces: No evidence of pneumothorax or effusion. Impression: No acute process or significant change. Report Dictated By: Arnold Herrera MD at 01/05/2019 7:46 AM ED Course/Re-evaluation Clinical Indication for ER IV: IV Access ED Course Chest x-ray negative. Influenza positive for influenza A. Vital signs stable. Reviewed the findings with the patient. Started Tamiflu 75 mg twice a day for 5 days. She will continue using Tylenol as needed for pain. Also provided a prescription for benzonatate to help with cough. Decision to Disposition Date: Jan 05, 2019 Decision to Disposition Time: 08:22 Depart Departure Latest Vital Signs Vital Signs Date Time Temp Pulse Resp B/P (MAP) Pulse Ox O2 Delivery O2 Flow Rate FiO2 01/05/19 08:30 146/74 (98) 01/05/19 08:15 85 94 01/05/19 06:53 99.4 16 Room Air Impression: Primary Impression: Influenza A Condition: Improved Disposition: HOME OR SELF-CARE Referrals: TOSHA AKBAR [employer] (PCP) New Scripts Benzonatate 100 Mg Cap (TESSALON PERLE 100 MG CAP) 100 Mg Capsule 100 MG PO TID PRN for COUGH, #15 CAP 0 Refills Prov: JACKIE CLARK MD 01/05/19 Oseltamivir Phosphate (TAMIFLU) 75 Mg Cap 75 MG PO BID, #10 CAP 0 Refills Prov: JACKIE CLARK MD 01/05/19 Patient Instructions: Influenza (ED) Additional Instructions: Rest. Increase fluid intake. Tylenol as needed for aches/pains and for fever. Tamiflu 75mg twice a day for 5 days. Return as needed for worsening symptoms, especially for shortness of breath. You can try taking a medicine called Benzonatate 100mg capsule, every 8 hours as needed for cough. JACKIE CLARK MD Jan 05, 2019 06:58
[2019-01-05] MEDS ORDERED: MIN2.5 PO (07:07)
[2019-01-05] MEDS ORDERED: METO25TA93 PO (07:07)
[2019-01-05] MEDS ORDERED: HYDR10TA20 PO (07:07)
[2019-01-05] MEDS ORDERED: LISI-374 PO (07:07)
[2019-01-05] MEDS ORDERED: HYDR-2966 PO (07:07)
[2019-01-05] MEDS ORDERED: SODI100037 PO (07:08)
[2019-01-05] MEDS ORDERED: ACET500T68 PO (07:08)
[2019-01-05] MEDS ORDERED: RANI75TA51 PO (07:08)
[2019-01-05 07:25] LABS: PLATELET COUNT, AUTOMATED 150 K/uL (150-450)
--- NOTE | 2019-01-05 07:54 | RADIOLOGY IMAGING REPORT ---
FACILITY: [facility] - [place] PATIENT NAME: Melissa Villeda : 1930 MR: [id number] V: [id number] EXAM DATE: ORDERING PHYSICIAN: JACKIE CLARK TECHNOLOGIST: Location: [facility] - [place] Patient: Melissa Villeda : 1930 Visit/Account:[id number] Date of Sevice: 01/05/2019 CHEST: Indication: Persistent cough. Technique: Frontal and lateral views were obtained. Comparison: 01/09/2018 Skeletal and soft tissue structures: There are chronic mild degenerative changes in the spine. No acu te skeletal deformity is identified. Heart and mediastinum: Within normal limits. Lung gordon: Well-expanded. There are chronic linear opacities at both bases, consistent with scarrin g. No acute consolidation or volume loss is identified. Pleural spaces: No evidence of pneumothorax or effusion. Impression: No acute process or significant change. Report Dictated By: Arnold Herrera MD at 01/05/2019 7:46 AM Report E-Signed By: Arnold Herrera MD at 01/05/2019 7:49 AM WSN:[id number]
[2019-01-05] MEDS ORDERED: OSE75 PO (08:23)
[2019-01-05] MEDS ORDERED: BENZ100C4 PO (08:25)
[2019-01-05 08:30] VITALS: BP 146/74
== END 2019-01-05 08:33 | disposition home or self-care (01) ==
LOC: ER 07:03
DX: J11.1 Influenza due to unidentified influenza virus with other respiratory manifestations (principal)
CPT/HCPCS: 36415; 71046; 82040; 82247; 82310; 82374; 82435; 82565; 82947; 84075; 84132; 84155; 84295; 84450; 84460; 84520; 85025; 87502; 99283

== ENCOUNTER → 2019-02-27 | Outpatient (CLI) | payer MEDICARE ==
[2017-03-26 13:57] VITALS: BMI 22.1
[~2019-02-27] MED LIST changes: +ACET500T68 PO; +BENZ100C4 PO; +HYDR-2966 PO; +METO25TA93 PO; +MIN2.5 PO; +OSE75 PO; +RANI75TA51 PO; +SODI100037 PO
== END ==
LOC: LAB 07:17
PROVIDERS: ATTEND Internal Medicine
DX: E78.00 Pure hypercholesterolemia, unspecified (principal); R09.89 Other specified symptoms and signs involving the circulatory and respiratory systems
CPT/HCPCS: 36415; 82310; 82374; 82435; 82565; 82947; 84132; 84295; 84520

== ENCOUNTER → 2019-03-26 | Outpatient (CLI) | payer MEDICARE ==
[2017-03-26 13:57] VITALS: BMI 22.1
== END ==
LOC: LAB 06:37
PROVIDERS: ATTEND Internal Medicine
DX: I47.1 Supraventricular tachycardia (principal); E78.00 Pure hypercholesterolemia, unspecified
CPT/HCPCS: 36415; 82310; 82374; 82435; 82565; 82947; 84132; 84295; 84520

== ENCOUNTER → 2019-05-01 | Outpatient (CLI) | payer MEDICARE ==
[2017-03-26 13:57] VITALS: BMI 22.1
== END ==
LOC: LAB 06:45
PROVIDERS: ATTEND Internal Medicine
DX: I65.23 Occlusion and stenosis of bilateral carotid arteries (principal); R09.89 Other specified symptoms and signs involving the circulatory and respiratory systems
CPT/HCPCS: 36415; 82310; 82374; 82435; 82565; 82947; 84132; 84295; 84520

== ENCOUNTER → 2019-05-13 | Outpatient (CLI) | payer MEDICARE ==
[2017-03-26 13:57] VITALS: BMI 22.1
== END ==
LOC: LAB 06:55
PROVIDERS: ATTEND Nurse Practitioner Family
DX: E87.8 Other disorders of electrolyte and fluid balance, not elsewhere classified (principal); R53.81 Other malaise; E78.00 Pure hypercholesterolemia, unspecified
CPT/HCPCS: 36415; 82040; 82247; 82310; 82374; 82435; 82465; 82550; 82565; 82947; 83718; 84075; 84132; 84155; 84295; 84443; 84450; 84460; 84478; 84520

== ENCOUNTER 2019-05-24 10:01 | Emergency (ER) | payer MEDICARE ==
[2017-03-26 13:57] VITALS: Wt 63.5 kg
[~2019-05-24 10:01] MED LIST changes: -OMEP-126 PO; -SOTOLOL PO
--- NOTE | 2019-05-24 10:11 | ER Report ---
History and Physical Time Seen By MD: 10:09 HPI/ROS History of HTN and DM was sitting at [employer] this morning when she felt lightheaded, dizzy, and overall weak. [place] well before [employer] this morning. Never any chest pain or SOB. Feels improved in the ED, but still not 100%. Saw her metal hanger this past week, and there were changes made to her HTN medications. She denies f/c, nausea/vomiting/diarrhea. No dysuria, urgency, or frequency. She admits that she does not drink water regularly. Remainder of the 14 system rev: Yes Allergies: Coded Allergies: sulfamethoxazole (Verified Allergy, Severe, UNKNOWN, 05/24/19) Nurse at rehab center took pt's vital signs and told the pt that she didn't like what she saw and took pt to the hospital. trimethoprim (Verified Allergy, Severe, UNKNOWN, 05/24/19) Nurse at rehab center took pt's vital signs and told the pt that she didn't like what she saw and took pt to the hospital. codeine (Verified Adverse Reaction, Mild, NAUSEA/VOMITING, 05/24/19) Home Meds Reported Medications Omeprazole (OMEPRAZOLE) 20 Mg Capsule.dr, 1 CAP PO QDAY, CAP 05/24/19 [sotolol] No Conflict Check, 80 PO 05/24/19 Acetaminophen (TYLENOL EXTRA STRENGTH) 500 Mg Tablet, 1000 MG PO HS, TAB 01/05/19 Sodium Chloride (SODIUM CHLORIDE) 1,000 Mg Tablet.marysol, 1000 MG PO TID 01/05/19 Metoprolol Tartrate (METOPROLOL TARTRATE) 25 Mg Tablet, 1 TAB PO BID, TAB 01/05/19 Minoxidil (MINOXIDIL) 2.5 Mg Tab, 2.5 MG PO DAILY, TAB 01/05/19 Hydralazine Hcl (HYDRALAZINE HCL) 10 Mg Tablet, 10 MG PO BID, TAB 01/05/19 Lisinopril (LISINOPRIL) 40 Mg Tablet, 40 MG PO QDAY, TAB 01/05/19 Levothyroxine Sodium (SYNTHROID) 88 Mcg Tablet, 88 MCG PO QM,T,W,TH,F 07/24/18 Prednisone 10 Mg Tab (PREDNISONE 10 MG TAB) 10 Mg Tablet, 5 MG PO QDAY, TAB 07/24/18 Citalopram Hydrobromide (CITALOPRAM HBR) 20 Mg Tablet, 10 MG PO QDAY, #5 TAB 02/10/18 Pramipexole Di-Hcl (MIRAPEX) 0.25 Mg Tablet, 0.25 MG PO QHS 03/25/17 Folic Acid (FOLIC ACID) 1 Mg Tablet, 1 MG PO QPM, TAB 03/25/17 Rosuvastatin Calcium (CRESTOR) 5 Mg Tablet, 5 MG PO QPM 03/25/17 Cholecalciferol (Vitamin D3) (VITAMIN D-3) 2,000 Unit Capsule, 2000 UNIT PO DAILY, CAPSULE 10/14/15 Multivitamin (ONE DAILY) 1 Each Tablet, 1 EACH PO DAILY 04/20/15 Aspirin (Childrens Chewable Aspirin) 81 Mg Chew, 81 MG PO QDAY, 0 Refills 05/24/11 Discontinued Reported Medications Ranitidine Hcl (RANITIDINE HCL) 75 Mg Tablet, 75 MG PO BID 01/05/19 Hydrochlorothiazide (HYDROCHLOROTHIAZIDE) 25 Mg Tablet, 1 TAB PO QDAY, TAB 01/05/19 Discontinued Scripts Benzonatate 100 Mg Cap (TESSALON PERLE 100 MG CAP) 100 Mg Capsule, 100 MG PO TID PRN for COUGH, #15 CAP 0 Refills Prov:JACKIE CLARK MD 01/05/19 Oseltamivir Phosphate (TAMIFLU) 75 Mg Cap, 75 MG PO BID, #10 CAP 0 Refills Prov:JACKIE CLARK MD 01/05/19 Reviewed Nurses Notes: Yes Old Medical Records Reviewed: Yes Hx Smoking: Yes Smoking Status: Former Smoker Hx Substance Use Disorder: No Hx Alcohol Use: No (former) Constitutional Vital Sign - Last 24 Hours 05/24/19 05/24/19 05/24/19 05/24/19 10:11 10:30 11:00 11:30 Temp 97.8 Pulse 113 104 112 100 Resp 20 13 30 11 B/P (MAP) 123/96 104/51 (68) 100/64 (76) 104/55 (71) Pulse Ox 98 90 90 92 O2 Delivery Room Air 05/24/19 05/24/19 05/24/19 05/24/19 12:00 12:30 13:20 13:30 Pulse 101 101 87 Resp 12 9 9 B/P (MAP) 130/57 (81) 123/68 (86) 133/64 (87) 130/67 (88) Pulse Ox 89 93 95 05/24/19 14:00 Pulse 87 Resp 14 B/P (MAP) 131/65 (87) Pulse Ox 93 Physical Exam General Appearance: The patient is alert, has no immediate need for airway protection and no current signs of toxicity. Eyes: Pupils equal and round no injection. Respiratory: Chest is non tender, lungs are clear to auscultation. Cardiac: regular rate and rhythm, harsh systolic murmur Gastrointestinal: Abdomen is soft and non tender, no masses, bowel sounds n ormal. Skin: No rashes or lesions. DIFFERENTIAL DIAGNOSIS: After history and physical exam differential diagnosis was considered for dizziness including but not limited to peripheral and central causes of vertigo, orthostatic causes including dehydration, and blood loss. Medical Decision Making Data Points Result Diagram: 05/24/19 1012 05/24/19 1012 Laboratory Hematology Test 05/24/19 10:03 05/24/19 10:12 05/24/19 14:02 Urine Color Yellow Urine Clarity Cloudy Urine pH 5.0 pH (4.8-9.5) Urine Specific [place] 1.018 Urine Protein 30 mg/dL (NEGATIVE) Urine Glucose (UA) Negative mg/dL (NEGATIVE) Urine Ketones Negative mg/dL (NEGATIVE) Urine Blood Negative (NEGATIVE) Urine Nitrite Negative (NEGATIVE) Urine Bilirubin Negative (NEGATIVE) Urine Urobilinogen Negative mg/dL (0.2-1.9) Urine Leukocyte Esterase Small (NEGATIVE) Urine RBC 6 /HPF (0-2/HPF) Urine WBC 106 /HPF (0-5/HPF) Urine Squamous Epithelial Cells Many /LPF (</=FEW) Urine Bacteria Few /HPF (NONE-FEW) Urine Hyaline Casts Few /LPF (NONE-FEW) Urine Mucus None /HPF (NONE-FEW) Red Blood Count 4.52 M/uL (4.17-5.56) Mean Corpuscular Volume 93.1 fL (80.0-96.0) Mean Corpuscular Hemoglobin 31.2 pg (26.0-33.0) Mean Corpuscular Hemoglobin Concent 33.5 g/dL (32.0-36.0) Red Cell Distribution Width 13.6 % (11.5-14.5) Mean Platelet Volume 8.4 fL (7.2-11.1) Neutrophils (%) (Auto) 57.8 % (39.4-72.5) Lymphocytes (%) (Auto) 32.3 % (17.6-49.6) Monocytes (%) (Auto) 8.5 % (4.1-12.4) Eosinophils (%) (Auto) 0.9 % (0.4-6.7) Basophils (%) (Auto) 0.5 % (0.3-1.4) Nucleated RBC Relative Count (auto) 0.1 /100WBC Neutrophils # (Auto) 4.7 K/uL (2.0-7.4) Lymphocytes # (Auto) 2.6 K/uL (1.3-3.6) Monocytes # (Auto) 0.7 K/uL (0.3-1.0) Eosinophils # (Auto) 0.1 K/uL (0.0-0.5) Basophils # (Auto) 0.0 K/uL (0.0-0.1) Nucleated RBC Absolute Count (auto) 0.01 K/uL Sodium Level 138 mmol/L (137-145) Potassium Level 3.8 mmol/L (3.5-5.0) Chloride Level 102 mmol/L (98-107) Carbon Dioxide Level 22 mmol/L (22-31) Blood Urea Nitrogen 22 mg/dl (7-18) Creatinine 1.70 mg/dl (0.52-1.04) Glomerular Filtration Rate Calc 28.3 Random Glucose 151 mg/dl (75-110) Calcium Level 9.7 mg/dl (8.4-10.2) Total Bilirubin 0.6 mg/dl (0.2-1.3) Aspartate Amino Transf (AST/SGOT) 42 U/L (0-35) Alanine Aminotransferase (ALT/SGPT) 36 U/L (0-56) Alkaline Phosphatase 64 U/L (0-126) Total Protein 7.4 g/dl (6.3-8.2) Albumin 4.4 g/dl (3.5-5.0) Troponin I 0.128 ng/ml Chemistry Test 05/24/19 10:03 05/24/19 10:12 05/24/19 14:02 Urine Color Yellow Urine Clarity Cloudy Urine pH 5.0 pH (4.8-9.5) Urine Specific [place] 1.018 Urine Protein 30 mg/dL (NEGATIVE) Urine Glucose (UA) Negative mg/dL (NEGATIVE) Urine Ketones Negative mg/dL (NEGATIVE) Urine Blood Negative (NEGATIVE) Urine Nitrite Negative (NEGATIVE) Urine Bilirubin Negative (NEGATIVE) Urine Urobilinogen Negative mg/dL (0.2-1.9) Urine Leukocyte Esterase Small (NEGATIVE) Urine RBC 6 /HPF (0-2/HPF) Urine WBC 106 /HPF (0-5/HPF) Urine Squamous Epithelial Cells Many /LPF (</=FEW) Urine Bacteria Few /HPF (NONE-FEW) Urine Hyaline Casts Few /LPF (NONE-FEW) Urine Mucus None /HPF (NONE-FEW) White Blood Count 8.1 k/uL (4.5-11.0) Red Blood Count 4.52 M/uL (4.17-5.56) Hemoglobin 14.1 g/dL (12.0-16.0) Hematocrit 42.1 % (34.0-47.0) Mean Corpuscular Volume 93.1 fL (80.0-96.0) Mean Corpuscular Hemoglobin 31.2 pg (26.0-33.0) Mean Corpuscular Hemoglobin Concent 33.5 g/dL (32.0-36.0) Red Cell Distribution Width 13.6 % (11.5-14.5) Platelet Count 199 K/uL (150-450) Mean Platelet Volume 8.4 fL (7.2-11.1) Neutrophils (%) (Auto) 57.8 % (39.4-72.5) Lymphocytes (%) (Auto) 32.3 % (17.6-49.6) Monocytes (%) (Auto) 8.5 % (4.1-12.4) Eosinophils (%) (Auto) 0.9 % (0.4-6.7) Basophils (%) (Auto) 0.5 % (0.3-1.4) Nucleated RBC Relative Count (auto) 0.1 /100WBC Neutrophils # (Auto) 4.7 K/uL (2.0-7.4) Lymphocytes # (Auto) 2.6 K/uL (1.3-3.6) Monocytes # (Auto) 0.7 K/uL (0.3-1.0) Eosinophils # (Auto) 0.1 K/uL (0.0-0.5) Basophils # (Auto) 0.0 K/uL (0.0-0.1) Nucleated RBC Absolute Count (auto) 0.01 K/uL Glomerular Filtration Rate Calc 28.3 Calcium Level 9.7 mg/dl (8.4-10.2) Total Bilirubin 0.6 mg/dl (0.2-1.3) Aspartate Amino Transf (AST/SGOT) 42 U/L (0-35) Alanine Aminotransferase (ALT/SGPT) 36 U/L (0-56) Alkaline Phosphatase 64 U/L (0-126) Total Protein 7.4 g/dl (6.3-8.2) Albumin 4.4 g/dl (3.5-5.0) Troponin I 0.128 ng/ml Urinalysis Test 05/24/19 10:03 Urine Color Yellow Urine Clarity Cloudy Urine pH 5.0 pH (4.8-9.5) Urine Specific [place] 1.018 Urine Protein 30 mg/dL (NEGATIVE) Urine Glucose (UA) Negative mg/dL (NEGATIVE) Urine Ketones Negative mg/dL (NEGATIVE) Urine Blood Negative (NEGATIVE) Urine Nitrite Negative (NEGATIVE) Urine Bilirubin Negative (NEGATIVE) Urine Urobilinogen Negative mg/dL (0.2-1.9) Urine Leukocyte Esterase Small (NEGATIVE) Urine RBC 6 /HPF (0-2/HPF) Urine WBC 106 /HPF (0-5/HPF) Urine Squamous Epithelial Cells Many /LPF (</=FEW) Urine Bacteria Few /HPF (NONE-FEW) Urine Hyaline Casts Few /LPF (NONE-FEW) Urine Mucus None /HPF (NONE-FEW) ED Course/Re-evaluation ED Course Initial though that the pt. was overly vasodialted given her medication changes, lower systolic BP and reflex tachycardia. No evidence of infection. No f/c or n/v/d. Never had chest pain or SOB. Multiple EKGs at baseline. First trop negative, and second positive. Pt. has remained assymptomatic. She was given ASA, but not heparin given her lack of symptoms. Currently stable. Will transfer to [facility] for further care/cardiology. Decision to Disposition Date: May 24, 2019 Decision to Disposition Time: 14:20 Depart Departure Latest Vital Signs Vital Signs Date Time Temp Pulse Resp B/P (MAP) Pulse Ox O2 Delivery O2 Flow Rate FiO2 05/24/19 14:00 87 14 131/65 (87) 93 05/24/19 10:11 97.8 Room Air Impression: Primary Impression: Dizziness Condition: Improved Disposition: XFER TO ACUTE CARE HOSPITAL Referrals: TOSHA AKBAR (PCP) GALILEA MIJARES MD May 24, 2019 10:11
[2019-05-24] MEDS ORDERED: SOTOLOL PO (10:30)
[2019-05-24] MEDS ORDERED: OMEP-126 PO (10:30)
[2019-05-24] MEDS ORDERED: NS(*) 0.9% 500 ML BAG 500 ML IV ONE (10:35)
[2019-05-24 10:49] LABS: PLATELET COUNT, AUTOMATED 199 K/uL (150-450)
[2019-05-24] MEDS ORDERED: ASPIRIN 81 MG CHEW PO ONE (15:05)
[2019-05-24 17:00] VITALS: BP 133/79
--- NOTE | 2019-05-25 12:32 | EKG ---
FACILITY: [facility] - [place] PATIENT NAME: DIETER NI : [id number] MR: [id number] V: [id number] EXAM DATE: ORDERING PHYSICIAN: MIKA MIJARES TECHNOLOGIST: Test Reason : Blood Pressure : / mmHG Vent. Rate : 108 BPM Atrial Rate : 108 BPM P-R Int : 186 ms QRS Dur : 082 ms QT Int : 358 ms P-R-T Axes : 066 -43 080 degrees QTc Int : 479 ms Sinus tachycardia Left axis deviation Septal infarct (cited on or before 24-MAY-2019) Abnormal ECG When compared with ECG of 24-JUL-2018 11:05, Sinus rhythm has replaced Junctional rhythm Vent. rate has increased BY 61 BPM QT has lengthened Confirmed by CHANDLER ELDER ([id number]) on 05/26/2019 6:22:28 AM Referred By: Confirmed By:CHANDLER ELDER
--- NOTE | 2019-05-25 12:32 | EKG ---
[place] [facility] [place] NAME: DIETER NI : [id number] MR: [id number] V: [id number] EXAM DATE: ORDERING PHYSICIAN: MIKA MIJARES TECHNOLOGIST: Test Reason : Blood Pressure : / mmHG Vent. Rate : 086 BPM Atrial Rate : 086 BPM P-R Int : 250 ms QRS Dur : 078 ms QT Int : 376 ms P-R-T Axes : 060 -32 068 degrees QTc Int : 449 ms Sinus rhythm with 1st degree AV block Left axis deviation Septal infarct (cited on or before 24-MAY-2019) Abnormal ECG When compared with ECG of 24-MAY-2019 10:11, MT interval has increased Confirmed by CHANDLER ELDER ([id number]) on 05/26/2019 6:22:41 AM Referred By: Confirmed By:CHANDLER ELDER
== END 2019-05-24 17:20 | disposition short-term general hospital (02) ==
LOC: ER 10:22
DX: R42 Dizziness and giddiness (principal); R79.89 Other specified abnormal findings of blood chemistry
CPT/HCPCS: 81001; 84484; 85025; 93005; 93306; 96360; 99285; A9270; J7040; 82040; 82247; 82310; 82374; 82435; 82565; 82947; 84075; 84132; 84155; 84295; 84450; 84460; 84520

== ENCOUNTER → 2019-05-24 | Outpatient (CLI) | payer MEDICARE ==
[2017-03-26 13:57] VITALS: BMI 22.1
[~2019-05-24] MED LIST changes: +OMEP-126 PO; +SOTOLOL PO
== END ==
LOC: AMB 17:12
PROVIDERS: ATTEND Nurse Practitioner
DX: R79.89 Other specified abnormal findings of blood chemistry (principal)
CPT/HCPCS: A0425; A0426

== ENCOUNTER → 2019-07-06 | Outpatient (CLI) | payer MEDICARE ==
[2017-03-26 13:57] VITALS: BMI 22.1
[~2019-07-06] MED LIST changes: +OMEP-126 PO; +SOTOLOL PO
== END ==
LOC: LAB 07:33
PROVIDERS: ATTEND Internal Medicine
DX: R09.89 Other specified symptoms and signs involving the circulatory and respiratory systems (principal)
CPT/HCPCS: 36415; 82310; 82374; 82435; 82565; 82947; 84132; 84295; 84520